=== PATIENT | female | born 1985 | race Caucasian/White ===

== ENCOUNTER 2018-01-22 21:54 | Emergency (ER) | payer OTHER ==
[2018-01-22] MEDS ORDERED: Ibuprofen 200 MG TAB ONE (22:36)
--- NOTE | 2018-01-22 22:52 | RAD ---
TWO VIEWS CHEST: Date: 01-22-18 Comparison: None. History: Cough and chest pain with deep breathing. FINDINGS: No pneumothorax, pleural fluid, focal consolidation or alveolar edema. Heart and mediastinal contours are within normal limits. IMPRESSION: No acute findings. POS: [facility]
== END 2018-01-22 23:04 | disposition home or self-care (01) ==
LOC: NAV ERS 21:54
DX: R09.1 Pleurisy (principal); E03.9 Hypothyroidism, unspecified; F32.9 Major depressive disorder, single episode, unspecified; F41.9 Anxiety disorder, unspecified; Z79.899 Other long term (current) drug therapy
CPT/HCPCS: 71046; 93005